=== PATIENT | female | born 1960 | race Hispanic/Latino ===

== ENCOUNTER 2016-05-18 15:07 | Emergency (ER) | payer SELFPAY ==
[2016-05-18] MEDS ORDERED: TYLENOL PO ONE (15:47)
--- NOTE | 2016-05-18 16:31 | XRay Report ---
Chest 2 views. Findings: The heart and lungs reveal no acute or significant abnormalities.
[2016-05-18 17:00] LABS: Anion Gap 20 mmol/L; BUN/Creatinine Ratio 13.33; Blood Urea Nitrogen 12 mg/dL (7-17); Calcium 8.9 mg/dL (8.4-10.2); Carbon Dioxide 24 mmol/L (22-30); Chloride 93.9 mmol/L (98-107); Glucose 118 mg/dL (65-100); Potassium 3.9 mmol/L (3.6-5.0); Sodium 134 mmol/L (137-145)
[2016-05-18 17:06] LABS: Basophils % (Auto) 0.3 % (0.0-1.8); Hematocrit 42.2 % (30.3-42.9); Mean Corpuscular HGB Conc 33 % (30-34); Mean Corpuscular Hemoglobin 28 pg (28-32); Mean Corpuscular Volume 84 fl (79-97); Platelet Count 175 K/mm3 (140-440); Red Blood Count 5.01 M/mm3 (3.65-5.03); Red Cell Distribution Width 14.5 % (13.2-15.2); White Blood Count 5.8 K/mm3 (4.5-11.0)
--- NOTE | 2016-05-18 17:39 | Emergency Department Report ---
ED General Adult HPI - General Chief complaint: Upper Respiratory Infection Stated complaint: FLU SYMPTOMS Time Seen by Provider: 05/18/16 17:31 Source: patient Mode of arrival: Ambulatory Limitations: No Limitations - History of Present Illness Initial comments: Pt reports flu like sx with myalgias, fever, cough, congestion, nausea, vomiting x 2 days. Exposed at home to family member with confirmed influenza. -: Gradual, days(s) (2) Location: head Severity scale (0 -10): 9 Quality: aching Consistency: constant Improves with: none Worsens with: none Associated Symptoms: cough, fever/chills, loss of appetite, nausea/vomiting Treatments Prior to Arrival: none - Related Data Previous Rx's Medication Instructions Recorded Last Taken Type Lisinopril [Zestril TAB] 10 mg PO QDAY #30 tablet 05/18/16 Unknown Rx Ondansetron [Zofran TAB] 4 mg PO Q8HR PRN #12 tablet 05/18/16 Unknown Rx Oseltamivir [Tamiflu] 75 mg PO BID #10 cap 05/18/16 Unknown Rx Allergies Allergy/AdvReac Type Severity Reaction Status Date / Time ibuprofen [From Motrin] Allergy Rash Verified 05/18/16 15:39 Penicillins Allergy Rash Verified 05/18/16 15:39 ED Review of Systems ROS: Stated complaint: FLU SYMPTOMS Other details as noted in HPI Comment: All other systems reviewed and negative Constitutional: see HPI, chills, fever Eyes: denies: eye pain, eye discharge, vision change ENT: throat pain, congestion. denies: ear pain Respiratory: cough. denies: shortness of breath, wheezing Cardiovascular: denies: chest pain, palpitations Endocrine: no symptoms reported Gastrointestinal: nausea, vomiting. denies: abdominal pain, diarrhea Genitourinary: denies: urgency, dysuria, discharge Musculoskeletal: denies: back pain, joint swelling, arthralgia Skin: denies: rash, lesions Neurological: headache. denies: weakness, paresthesias Psychiatric: denies: anxiety, depression Hematological/Lymphatic: denies: easy bleeding, easy bruising ED Past Medical Hx - Past Medical History Previous Medical History?: Yes Hx Hypertension: Yes Hx Diabetes: Yes Additional medical history: Insulin resistant - Surgical History Past Surgical History?: Yes Additional Surgical History: right carpel tunnel surgery - Social History Smoking Status: Never Smoker Substance Use Type: Alcohol, Non Opiate Pain - Medications Home Medications: Home Medications Medication Instructions Recorded Confirmed Last Taken Type Lisinopril [Zestril TAB] 10 mg PO QDAY #30 tablet 05/18/16 Unknown Rx Ondansetron [Zofran TAB] 4 mg PO Q8HR PRN #12 tablet 05/18/16 Unknown Rx Oseltamivir [Tamiflu] 75 mg PO BID #10 cap 05/18/16 Unknown Rx ED Physical Exam - General Limitations: No Limitations General appearance: alert, in no apparent distress - Head Head exam: Present: atraumatic, normocephalic - Eye Eye exam: Present: normal appearance, PERRL, EOMI - ENT ENT exam: Present: normal orophraynx, mucous membranes moist - Neck Neck exam: Present: normal inspection, full ROM. Absent: tenderness, meningismus - Respiratory Respiratory exam: Present: normal lung sounds bilaterally. Absent: respiratory distress, wheezes, rales, rhonchi - Cardiovascular Cardiovascular Exam: Present: regular rate, normal rhythm. Absent: systolic murmur, diastolic murmur, rubs, gallop - GI/Abdominal GI/Abdominal exam: Present: soft, normal bowel sounds. Absent: distended, tenderness, guarding, rebound, rigid - Extremities Exam Extremities exam: Present: normal inspection - Back Exam Back exam: Present: normal inspection. Absent: CVA tenderness (R), CVA tenderness (L) - Neurological Exam Neurological exam: Present: alert, oriented X3 - Psychiatric Psychiatric exam: Present: normal affect, normal mood - Skin Skin exam: Present: warm, dry, intact, normal color. Absent: rash ED Course Vital Signs 05/18/16 05/18/16 05/18/16 15:40 15:50 18:17 Temperature 101.5 F H Pulse Rate 85 87 Respiratory 20 18 20 Rate Blood Pressure 159/104 Blood Pressure 157/90 [Left] O2 Sat by Pulse 95 98 Oximetry - Reevaluation(s) Reevaluation #1: 05/18/16 18:24 NAD, stable for d/c. ED Medical Decision Making - Lab Data Result diagrams: 05/18/16 16:12 05/18/16 16:12 - Radiology Data Radiology results: report reviewed naf - Medical Decision Making Pt with likely influenza. Labs essentially WNL. CXR clear. Will treat. Also will restart BP meds which she has been off for "a while" and she will get PCP follow up. - Differential Diagnosis flu, pna Critical care attestation.: If time is entered above; I have spent that time in minutes in the direct care of this critically ill patient, excluding procedure time. ED Disposition Clinical Impression: Influenza, Elevated BP Disposition: DISCHARGED TO HOME OR SELFCARE Is pt being admited?: No Condition: Good Instructions: Influenza (ED), Chronic Hypertension (ED) Prescriptions: Lisinopril [Zestril TAB] 10 mg PO QDAY #30 tablet Ondansetron [Zofran TAB] 4 mg PO Q8HR PRN #12 tablet PRN Reason: Nausea And Vomiting Oseltamivir [Tamiflu] 75 mg PO BID #10 cap Referrals: LINDA BEE MD [Staff Physician] - 3-5 Days Forms: Work/School Release Form(ED) Time of Disposition: 18:25
[2016-05-18 18:20] VITALS: BP 157/90
== END 2016-05-18 18:41 | disposition home or self-care (01) ==
LOC: ED 15:07
DX: J11.1 Influenza due to unidentified influenza virus with other respiratory manifestations (principal); I10 Essential (primary) hypertension; E11.9 Type 2 diabetes mellitus without complications
CPT/HCPCS: 36415; 71020; 80048; 85025; 87040; 99284

== ENCOUNTER 2016-10-29 14:24 | Emergency (ER) | payer SELFPAY ==
[2016-10-29 14:39] VITALS: BP 146/100
[2016-10-29] MEDS ORDERED: BENADRYL IV ONE (15:17)
[2016-10-29] MEDS ORDERED: NACL 0.9% 1000 ML 1,000 ML IV ONE (15:17)
[2016-10-29] MEDS ORDERED: REGLAN IV ONE (15:17)
--- NOTE | 2016-10-29 15:25 | Emergency Department Report ---
ED Allergic Reaction HPI - General Chief complaint: Allergic Reaction Stated complaint: RASH Time Seen by Provider: 10/29/16 14:42 Source: patient Mode of arrival: Ambulatory Limitations: No Limitations - History of Present Illness Initial Comments: This is a 56-year-old female nontoxic, well nourished in appearance, no acute signs of distress that presents to the ED c/o of itching and rash that started yesterday. Patient stated she has been taking Bactrim that was prescribed to her for a infected Bee sting. Patient denies ever taking Bactrim or Sulfa antibiotics. Patients associated symptoms includes itching and redness to the chest, bilateral lower ext and upper, and neck region. Patient stated she also developed lip swelling early this morning. Patient denies any chest pain, drooling, difficulty swallowing, difficulty breathing, swelling of tongue, fever , chills, headache, n/v, or shortness of breathe. Patient stated allergies to Motrin and PCN. Patients (Osvaldo Singh) is currently at bedside stated he will drive the patient home. MD Complaint: hives -: Gradual, days(s) (1) Exposure: medication (Bactrim) Symptoms: rash, itching, lip swelling. denies: facial swelling, difficulty swallowing, difficulty breathing, orolingual swelling, hoarseness, syncopy, dizziness, nausea, vomiting, abdominal pain Severity: mild Treatment Prior to Arrival: none Previous Allergy History: none - Related Data Previous Rx's Medication Instructions Recorded Last Taken Type Lisinopril [Zestril TAB] 10 mg PO QDAY #30 tablet 05/18/16 Unknown Rx diphenhydrAMINE [Benadryl CAP] 25 mg PO Q6HR PRN #20 capsule 10/29/16 Unknown Rx predniSONE [Deltasone] 20 mg PO BID #10 tab 10/29/16 Unknown Rx Allergies Allergy/AdvReac Type Severity Reaction Status Date / Time ibuprofen [From Motrin] Allergy Rash Verified 10/29/16 14:29 Penicillins Allergy Rash Verified 10/29/16 14:29 ED Review of Systems ROS: Stated complaint: RASH Other details as noted in HPI Constitutional: denies: chills, fever Eyes: denies: eye pain, eye discharge, vision change ENT: denies: ear pain, throat pain Respiratory: denies: cough, shortness of breath, wheezing Cardiovascular: denies: chest pain, palpitations Endocrine: no symptoms reported Gastrointestinal: denies: abdominal pain, nausea, diarrhea Genitourinary: denies: urgency, dysuria, discharge Musculoskeletal: denies: back pain, joint swelling, arthralgia Skin: rash, pruritus. denies: lesions Neurological: denies: headache, weakness, paresthesias Psychiatric: denies: anxiety, depression Hematological/Lymphatic: denies: easy bleeding, easy bruising ED Past Medical Hx - Past Medical History Hx Hypertension: Yes Hx Diabetes: Yes ("GESTATIONAL ; INSULIN RESISTANT") Additional medical history: Insulin resistant - Surgical History Hx Appendectomy: Yes Additional Surgical History: right carpel tunnel surgery. TONSILLECTOMY - Social History Smoking Status: Never Smoker Substance Use Type: None - Medications Home Medications: Home Medications Medication Instructions Recorded Confirmed Last Taken Type Lisinopril [Zestril TAB] 10 mg PO QDAY #30 tablet 05/18/16 10/29/16 Unknown Rx diphenhydrAMINE [Benadryl CAP] 25 mg PO Q6HR PRN #20 capsule 10/29/16 Unknown Rx predniSONE [Deltasone] 20 mg PO BID #10 tab 10/29/16 Unknown Rx ED Physical Exam - General Limitations: No Limitations General appearance: alert, in no apparent distress - Head Head exam: Present: atraumatic, normocephalic, normal inspection - Eye Eye exam: Present: normal appearance, PERRL, EOMI. Absent: scleral icterus, conjunctival injection, nystagmus, periorbital swelling, periorbital tenderness Pupils: Present: normal accommodation - ENT ENT exam: Present: normal exam, normal orophraynx, mucous membranes moist, TM's normal bilaterally, normal external ear exam - Expanded ENT Exam Expanded Ear exam: Present: normal external inspection Mouth exam: Present: normal external inspection, tongue normal. Absent: drooling, trismus, muffled voice, tongue elevation, laceration, other (Uvula midline. No tongue swelling. ) Teeth exam: Present: normal inspection Throat exam: Positive: normal inspection. Negative: tonsillar erythema, tonsillar exudate, R peritonsillar mass, L peritonsillar mass - Neck Neck exam: Present: normal inspection, full ROM. Absent: tenderness, meningismus, lymphadenopathy, thyromegaly - Respiratory Respiratory exam: Present: normal lung sounds bilaterally. Absent: respiratory distress, wheezes, rales, rhonchi, stridor, chest wall tenderness, accessory muscle use, decreased breath sounds, prolonged expiratory - Cardiovascular Cardiovascular Exam: Present: regular rate, normal rhythm. Absent: systolic murmur, diastolic murmur, rubs, gallop - GI/Abdominal GI/Abdominal exam: Present: soft, normal bowel sounds - Extremities Exam Extremities exam: Present: normal inspection, full ROM, normal capillary refill. Absent: tenderness, pedal edema, joint swelling, calf tenderness - Back Exam Back exam: Present: normal inspection, full ROM. Absent: tenderness, CVA tenderness (R), CVA tenderness (L), muscle spasm, paraspinal tenderness, vertebral tenderness, rash noted - Neurological Exam Neurological exam: Present: alert, oriented X3, CN II-XII intact, normal gait, reflexes normal - Psychiatric Psychiatric exam: Present: normal affect, normal mood - Skin Skin exam: Present: warm, dry, intact, normal color. Absent: rash ED Course Vital Signs 10/29/16 14:33 Temperature 98.8 F Pulse Rate 83 Respiratory 17 Rate Blood Pressure 146/100 O2 Sat by Pulse 100 Oximetry - Reevaluation(s) Reevaluation #1: 10/29/16 15:29 Patient is speaking in full sentences with no signs of distress noted. ED Medical Decision Making - Medical Decision Making Ed course: This is a 56-year-old female that presents with allergic reaction 1- patient was examined by myself. Symptoms are consistent with allergic reaction to Bactrim. Patient is treated with Solu-medrol, Benadryl, Reglan and 1000 normal saline IV. Patient stated itching has subsided and redness is clearing up. 2- patient be treated with prednisone at discharge and Benadryl as needed for itching. 3- patient's was instructed to have the patient given home due to sedation/drowsiness of Benadryl that was prescribed to the patient in ED. 4- patient was also instructed to follow-up with her primary care doctor in 3-5 days or if symptoms such as difficult breathing, hoarseness, chest pain, shortness of breath, numbness, tingling, nausea or vomiting return to emergency room as soon as possible. 5- At time time of discharge, the patient does not seem toxic or ill in appearance. No acute signs of distress noted. Patient agrees to discharge treatment plan of care. No further questions noted by the patient. Critical care attestation.: If time is entered above; I have spent that time in minutes in the direct care of this critically ill patient, excluding procedure time. ED Disposition Clinical Impression: Allergic reaction Qualifiers: Encounter type: initial encounter Qualified Code(s): T78.40XA - Allergy, unspecified, initial encounter Disposition: TO HOME OR SELFCARE Is pt being admited?: No Does the pt Need Aspirin: No Condition: Stable Instructions: Urticaria (ED), Allergies (ED), Prednisone (By mouth), Diphenhydramine (By mouth) Additional Instructions: follow-up with your primary care doctor in 3-5 days or if symptoms such as difficult breathing, hoarseness, chest pain, shortness of breath, numbness, tingling, nausea or vomiting return to emergency room as soon as possible. Take full course of prednisone as prescribed. Take Benadryl as prescribed as needed for itching. Benadryl makes her drowsy so do not operate any machinery while taking Benadryl. Prescriptions: diphenhydrAMINE [Benadryl CAP] 25 mg PO Q6HR PRN #20 capsule PRN Reason: Itching predniSONE [Deltasone] 20 mg PO BID #10 tab Referrals: PRIMARY CAREMD [Primary Care Provider] - 3-5 Days HALEIGH GALVIN MD [Staff Physician] - 3-5 Days [facility] [Outside] - 3-5 Days [facility] [Outside] - 3-5 Days Forms: Work/School Release Form(ED)
== END 2016-10-29 17:18 | disposition home or self-care (01) ==
LOC: ED 14:24
DX: T78.40XA Allergy, unspecified, initial encounter (principal); I10 Essential (primary) hypertension; Z88.6 Allergy status to analgesic agent; Z88.0 Allergy status to penicillin
CPT/HCPCS: 96374; 96375; 99282; J1200; J2765; J2930; J7030